=== PATIENT | female | born 1980 | race Two or more races ===

== ENCOUNTER → 2017-08-26 | Emergency (ER) | payer OTHER ==
[~2017-08-26] VITALS: Ht 160 cm; Wt 63.5 kg
[~2017-08-26] MED LIST: BENADRYL25 MG PO; CARDIZEM CD120 MG PO; CARDIZEM LA240 MG PO; LEVAQUIN750 MG PO; MEDROL4 MG PO; MEDROL8 MG PO; NEURONTIN600 MG PO; NEURONTIN800 MG; PHENERGAN W CODEINE PO; PREDNISONE10 MG PO; PULMICORT90 MCG/AER; SINGULAIR10 MG PO; TRAM1TAB98 PO; TRAMADOL HCL-AP1 TAB PO; ULTRACET PO; ULTRAM50 MG PO; XOPENEX0.63 MG/3 IH; ZITHROMAX500 MG PO
== END | disposition home or self-care (01) ==
LOC: ER 19:49
DX: T22.251A Burn of second degree of right shoulder, initial encounter (principal); X11.8XXA Contact with other hot tap-water, initial encounter; Y93.89 Activity, other specified; Y92.098 Other place in other non-institutional residence as the place of occurrence of the external cause; Y99.8 Other external cause status

== ENCOUNTER 2017-11-07 15:26 | Outpatient (CLI) | payer OTHER | END 2017-11-07 15:43 | disposition home or self-care (01) | LOC: SONOGRAMA 15:26 | DX: N94.0 Mittelschmerz (principal); N94.89 Other specified conditions associated with female genital organs and menstrual cycle; R10.2 Pelvic and perineal pain ==

== ENCOUNTER → 2017-11-17 | Day surgery (SDC) | payer OTHER | END | disposition home or self-care (01) | LOC: CIR.AMB 06:11 | DX: N93.8 Other specified abnormal uterine and vaginal bleeding (principal); N84.0 Polyp of corpus uteri; Q51.818 Other congenital malformations of uterus ==

== ENCOUNTER 2017-12-07 09:52 | Inpatient (IN) | payer OTHER ==
[~2017-12-07] VITALS: Ht 162.6 cm; Wt 63.5 kg
[2017-12-18] MEDS ORDERED: ULTRACET PO (07:21)
[2017-12-18] MEDS ORDERED: GAS-X125 MG PO (07:21)
== END 2017-12-18 08:36 | DRG 743 ==
LOC: O/R 12-15 06:43 → OB/GYN 12-15 06:43
PROVIDERS: Obstetrics & Gynecology
PROC: 0UB00ZZ Excision of Right Ovary, Open Approach (ICD-10-PCS; principal; 2017-12-15 08:30)
DX: N83.291 Other ovarian cyst, right side (principal); N73.6 Female pelvic peritoneal adhesions (postinfective); N93.8 Other specified abnormal uterine and vaginal bleeding; G89.18 Other acute postprocedural pain

== ENCOUNTER 2017-12-31 15:34 | Inpatient (IN) | payer OTHER ==
[~2017-12-31] VITALS: Wt 5.0 kg
[~2017-12-31 15:34] MED LIST changes: +GAS-X125 MG PO
== END 2018-01-11 13:35 | disposition home or self-care (01) | DRG 388 ==
LOC: ER 15:34 → SEC-K 01-01 07:12 → OB/GYN 01-01 07:12
PROC: 3E0336Z Introduction of Nutritional Substance into Peripheral Vein, Percutaneous Approach (ICD-10-PCS; 2018-01-03)
PROC: 02H633Z Insertion of Infusion Device into Right Atrium, Percutaneous Approach (ICD-10-PCS; principal; 2018-01-05)
PROC: BW21Y0Z Computerized Tomography (CT Scan) of Abdomen and Pelvis using Other Contrast, Unenhanced and Enhanced (ICD-10-PCS; 2018-01-05)
DX: K91.31 Postprocedural partial intestinal obstruction (principal); K85.80 Other acute pancreatitis without necrosis or infection; N99.840 Postprocedural hematoma of a genitourinary system organ or structure following a genitourinary system procedure; Y83.6 Removal of other organ (partial) (total) as the cause of abnormal reaction of the patient, or of later complication, without mention of misadventure at the time of the procedure; Y92.098 Other place in other non-institutional residence as the place of occurrence of the external cause; J45.998 Other asthma; N99.4 Postprocedural pelvic peritoneal adhesions; N83.291 Other ovarian cyst, right side

== ENCOUNTER 2018-05-01 08:31 | Outpatient (CLI) | payer OTHER | END 2018-05-01 18:03 | disposition home or self-care (01) | LOC: LAB 08:31 | DX: I10 Essential (primary) hypertension (principal); E11.9 Type 2 diabetes mellitus without complications; E03.8 Other specified hypothyroidism; E78.2 Mixed hyperlipidemia; R10.84 Generalized abdominal pain; M81.0 Age-related osteoporosis without current pathological fracture ==

== ENCOUNTER 2018-05-04 09:48 | Outpatient (CLI) | payer OTHER | END 2018-05-04 10:00 | disposition home or self-care (01) | LOC: TOM 09:48 | DX: R10.84 Generalized abdominal pain (principal); K57.30 Diverticulosis of large intestine without perforation or abscess without bleeding ==

== ENCOUNTER 2018-05-19 12:07 | Inpatient (IN) | payer OTHER ==
[~2018-05-19] VITALS: Ht 162.6 cm; Wt 63.5 kg
[2018-06-19] MEDS ORDERED: XOPENEX0.63 MG/3 IH (10:06)
[2018-06-19] MEDS ORDERED: TRAM1TAB98 PO (10:06)
[2018-06-19] MEDS ORDERED: Pulmicort 0.5 MG/2 M IH (10:06)
[2018-06-19] MEDS ORDERED: Tussi-Organidin Dm-S PO (10:06)
[2018-06-19] MEDS ORDERED: FAMOTIDINE20 MG PO (10:06)
== END 2018-06-19 16:14 | disposition home or self-care (01) | DRG 202 ==
LOC: MEDI 12:07 → MEDJ 12:19 → MEDI 06-02 16:03
PROC: 3E0F7GC Introduction of Other Therapeutic Substance into Respiratory Tract, Via Natural or Artificial Opening (ICD-10-PCS; principal; 2018-05-19)
PROC: 4A033R1 Measurement of Arterial Saturation, Peripheral, Percutaneous Approach (ICD-10-PCS; 2018-05-19)
PROC: 02HV33Z Insertion of Infusion Device into Superior Vena Cava, Percutaneous Approach (ICD-10-PCS; 2018-05-27)
PROC: BP3 Imaging, Non-Axial Upper Bones, Magnetic Resonance Imaging (MRI) (ICD-10-PCS; 2018-05-28)
PROC: B246ZZZ Ultrasonography of Right and Left Heart (ICD-10-PCS; 2018-06-08)
PROC: CW1NLZZ Planar Nuclear Medicine Imaging of Whole Body using Gallium 67 (Ga-67) (ICD-10-PCS; 2018-06-09)
PROC: BW21Y0Z Computerized Tomography (CT Scan) of Abdomen and Pelvis using Other Contrast, Unenhanced and Enhanced (ICD-10-PCS; 2018-06-10)
PROC: BB24ZZZ Computerized Tomography (CT Scan) of Bilateral Lungs (ICD-10-PCS; 2018-06-11)
DX: J45.41 Moderate persistent asthma with (acute) exacerbation (principal); J18.9 Pneumonia, unspecified organism; L03.114 Cellulitis of left upper limb; R78.81 Bacteremia; B37.89 Other sites of candidiasis; J98.11 Atelectasis; I80.8 Phlebitis and thrombophlebitis of other sites; B96.1 Klebsiella pneumoniae [K. pneumoniae] as the cause of diseases classified elsewhere; Y95 Nosocomial condition; D64.89 Other specified anemias; D69.59 Other secondary thrombocytopenia; Z16.24 Resistance to multiple antibiotics; B95.4 Other streptococcus as the cause of diseases classified elsewhere; B96.89 Other specified bacterial agents as the cause of diseases classified elsewhere; B96.5 Pseudomonas (aeruginosa) (mallei) (pseudomallei) as the cause of diseases classified elsewhere

== ENCOUNTER 2018-08-15 11:42 | Outpatient (CLI) | payer OTHER ==
[~2018-08-15 11:42] MED LIST changes: +FAMOTIDINE20 MG PO; +Pulmicort 0.5 MG/2 M IH; +Tussi-Organidin Dm-S PO
== END 2018-08-15 11:51 | disposition home or self-care (01) ==
LOC: SONOGRAMA 11:42
DX: E03.8 Other specified hypothyroidism (principal)

== ENCOUNTER 2022-02-14 14:04 | Outpatient (CLI) | payer OTHER | END 2022-02-14 14:14 | disposition home or self-care (01) | LOC: MAMO-SONO 14:04 | DX: Z12.31 Encounter for screening mammogram for malignant neoplasm of breast (principal); N63.0 Unspecified lump in unspecified breast ==